=== PATIENT | male | born 1930 | race Caucasian/White ===

== ENCOUNTER 2018-11-05 10:08 | Day surgery (SDC) | payer OTHER ==
[~2018-11-05] VITALS: Ht 175.3 cm; Wt 86.0 kg
[~2018-11-05 10:08] MED LIST: ALLO300 PO; ASPI81CH; FINA5 PO; FOLI1 PO; GLIM4 PO; METF500 PO; RAMI2.5 PO; VITORIN
[2018-11-05] MEDS ORDERED: ATOR10 PO (11:22)
[2018-11-05] MEDS ORDERED: PIOG30 PO (11:22)
[2018-11-05] MEDS ORDERED: Metoprolol Succ25 MG PO (11:23)
[2018-11-05] MEDS ORDERED: ALBU90OI61 INH (11:23)
--- NOTE | 2018-11-05 13:56 | NUR ---
PT RETURNED TO [facility]ERY AWAKE, ALERT, CONVERSING WITH STAFF APPROX 15 MINUTES AGO. PT HAS NO C/O PAIN OR DISCOMFORT. PPP TO RIGHT FOOT. LEG PWD, GOOD CAP REFILL. FAMILY AND MD TO BEDSIDE TO REVIEW FINDINGS OF PROCEDURE.
--- NOTE | 2018-11-05 16:15 | NUR ---
AMBULATED IN ROOM AND TO BATHROOM. TOLERATED WELL. NO BLEEDING AT RIGHT GROIN SITE.
--- NOTE | 2018-11-05 16:30 | NUR ---
DRESSING FOR DISCHARGE. DISCHARGE INSTRUCTIONS GIVEN WITH VERBAL AND WRITTEN UNDERSTANDING.
--- NOTE | 2018-11-05 16:40 | NUR ---
DISCHARGED HOME VIA WHEELCHAIR. FRIEND DRIVING.
== END 2018-11-05 16:40 | disposition home or self-care (01) ==
LOC: MHTC 10:08
DX: I25.119 Atherosclerotic heart disease of native coronary artery with unspecified angina pectoris (principal); I25.719 Atherosclerosis of autologous vein coronary artery bypass graft(s) with unspecified angina pectoris; I10 Essential (primary) hypertension; E78.5 Hyperlipidemia, unspecified; M10.9 Gout, unspecified; N40.0 Benign prostatic hyperplasia without lower urinary tract symptoms; Z87.891 Personal history of nicotine dependence; Z79.82 Long term (current) use of aspirin; Z79.899 Other long term (current) drug therapy; Z79.84 Long term (current) use of oral hypoglycemic drugs
CPT/HCPCS: 93455; 99152; 99153; C1760; C1769; J1644; J2250; J3010; J7030; Q9967

== ENCOUNTER → 2020-11-03 | Outpatient (CLI) | payer OTHER ==
[~2020-11-03] MED LIST changes: +ALBU90OI61 INH; +ATOR10 PO; +Metoprolol Succ25 MG PO; +PIOG30 PO
[2020-11-03 13:53] LABS: Albumin, Blood 3.8 g/dL (3.4-5.0); Albumin/Globulin Ratio 0.9 (0.8-1.8); Bilirubin, Total 0.4 mg/dL (0.1-1.0); Bun/Creatinine Ratio 19.5 (12.0-20.0); Calcium, Blood 8.8 mg/dL (8.5-10.1); Creatinine, Blood 1.49 mg/dL (0.60-1.20); Globulin, Blood 4.4 g/dL (2.2-4.0); Potassium, Blood 4.7 mmol/L (3.5-5.5); Total Protein, Blood 8.2 g/dL (6.4-8.2)
== END ==
LOC: LAB SHORT 09:50 → LAB 09:50
PROVIDERS: Registered Nurse
DX: R06.09 Other forms of dyspnea (principal)
CPT/HCPCS: 80053; 83880